=== PATIENT | female | born 1995 | race American Indian/Alaskan Native ===

== ENCOUNTER 2018-07-09 14:59 | Emergency (ER) | payer SELFPAY ==
[2018-07-09] MEDS ORDERED: ASPIRIN PO ONE (15:45)
[2018-07-09 16:56] LABS: Basophils % (Auto) 0.8 % (0.0-1.8); Eosinophils # (Auto) 0.1 K/mm3 (0.0-0.4); Eosinophils % (Auto) 1.8 % (0.0-4.3); Hematocrit 34.2 % (30.3-42.9); Hemoglobin 11.3 gm/dl (10.1-14.3); Lymphocytes # (Auto) 1.6 K/mm3 (1.2-5.4); Lymphocytes % (Auto) 28.4 % (13.4-35.0); Mean Corpuscular HGB Conc 33 % (30-34); Mean Corpuscular Hemoglobin 27 pg (28-32); Mean Corpuscular Volume 82 fl (79-97); Monocytes # (Auto) 0.8 K/mm3 (0.0-0.8); Monocytes % (Auto) 14.6 % (0.0-7.3); Platelet Count 314 K/mm3 (140-440); Red Blood Count 4.18 M/mm3 (3.65-5.03)
[2018-07-09 17:01] LABS: BUN/Creatinine Ratio 12; Blood Urea Nitrogen 11 mg/dL (7-17); Calcium 9.1 mg/dL (8.4-10.2); Hemolysis Index 1
--- NOTE | 2018-07-09 18:39 | Emergency Department Report ---
Blank Doc - Documentation Documentation: 22-year-old female with left-sided chest pain 2-3 days. Reports radiation into the left arm with tingling in fourth and fifth fingers. Patient reports history of hypertension. Reports tobacco use also. Denies family history of coronary artery disease. Denies leg pain and swelling. Vital signs are unremarkable. She appears be in no acute distress. EKG Unremarkable. Initial troponin negative. Will obtain second troponin due to character pain. Patient also reports pleuritic chest pain, but is not tachycardic or hypoxic. No calf tenderness of swelling on exam. Will check D-dimer and CXR also.
--- NOTE | 2018-07-09 19:23 | XRay Report ---
FINAL REPORT EXAM: XR CHEST ROUTINE 2V HISTORY: chest pain COMPARISON: None available. FINDINGS:: Frontal and lateral views of the chest obtained. Cardiac silhouette is within normal limits. No focal consolidation or effusion. No pneumothorax. Visualized bony thorax is grossly intact. IMPRESSION:: No acute findings.
--- NOTE | 2018-07-09 19:48 | Emergency Department Report ---
ED Chest Pain HPI - General Chief Complaint: Chest Pain Stated Complaint: CHEST PAIN Time Seen by Provider: 07/09/18 18:12 Source: patient Mode of arrival: Ambulatory Limitations: No Limitations - History of Present Illness Initial Comments: 22-year-old female with left-sided chest pain 2-3 days. Reports radiation into the left arm with tingling in fourth and fifth fingers. Patient reports history of hypertension. Reports tobacco use also. Denies family history of coronary artery disease. Denies leg pain and swelling. Vital signs are unremarkable. She appears be in no acute distress. EKG Unremarkable. Initial troponin negative. Will obtain second troponin due to character pain. Patient also reports pleuritic chest pain, but is not tachycardic or hypoxic. No calf tenderness of swelling on exam. Will check D-dimer and CXR also. MD Complaint: chest pain, other (cough ) Onset/Timin -: days(s) Onset: during rest Pain Location: left chest, right chest Pain Radiation: none Severity: moderate Severity scale (0 -10): 4 Quality: sharp Consistency: intermittent Improves With: rest Worsens With: inspiration, palpation, movement re: denies: nausea, vomting, diaphoresis, dyspnea, sense of impending doom Other Symptoms: cough Treatments Prior to Arrival: none Aspirin use within the Past 7 Days: (0) No - Related Data On Oral Contraceptives: No Previous Rx's Medication Instructions Recorded Last Taken Type ALBUTEROL Inhaler(NF) [VENTOLIN 1 puff IH Q4H PRN #1 inha 07/09/18 Unknown Rx Inhaler(NF)] Benzonatate [Tessalon Perles] 100 mg PO Q8HR PRN #30 capsule 07/09/18 Unknown Rx Ibuprofen 800 mg PO TID PRN #30 tablet 07/09/18 Unknown Rx predniSONE [Deltasone] 40 mg PO QDAY 5 Days #20 tab 07/09/18 Unknown Rx Allergies Allergy/AdvReac Type Severity Reaction Status Date / Time No Known Allergies Allergy Unverified 07/09/18 15:44 Heart Score - HEART Score History: Slightly suspicious EKG: Normal Age: < 45 Risk factors: 1-2 risk factors Troponin: < normal limit HEART Score: 1 - Critical Actions Critical Actions: 0-3 pts:0.9-1.7%risk of adverse cardiac event.Candidate for discharge ED Review of Systems ROS: Stated complaint: CHEST PAIN Other details as noted in HPI Constitutional: denies: chills, fever Eyes: denies: eye pain, eye discharge, vision change ENT: denies: ear pain, throat pain Respiratory: cough. denies: shortness of breath, wheezing Cardiovascular: denies: chest pain, palpitations Endocrine: no symptoms reported Gastrointestinal: denies: abdominal pain, nausea, diarrhea Genitourinary: denies: urgency, dysuria, discharge Musculoskeletal: as per HPI Skin: denies: rash, lesions Neurological: denies: headache, weakness, paresthesias Psychiatric: denies: anxiety, depression Hematological/Lymphatic: denies: easy bleeding, easy bruising ED Past Medical Hx - Past Medical History Additional medical history: anxiety - Surgical History Past Surgical History?: No - Social History Smoking Status: Current Every Day Smoker Substance Use Type: None - Medications Home Medications: Home Medications Medication Instructions Recorded Confirmed Last Taken Type ALBUTEROL Inhaler(NF) [VENTOLIN 1 puff IH Q4H PRN #1 inha 07/09/18 Unknown Rx Inhaler(NF)] Benzonatate [Tessalon Perles] 100 mg PO Q8HR PRN #30 capsule 07/09/18 Unknown Rx Ibuprofen 800 mg PO TID PRN #30 tablet 07/09/18 Unknown Rx predniSONE [Deltasone] 40 mg PO QDAY 5 Days #20 tab 07/09/18 Unknown Rx ED Physical Exam - General Limitations: No Limitations General appearance: alert, in no apparent distress - Head Head exam: Present: atraumatic - Eye Eye exam: Present: normal appearance - ENT ENT exam: Present: mucous membranes moist, TM's normal bilaterally, normal external ear exam - Expanded ENT Exam Expanded Throat exam: Positive: tonsillar erythema. Negative: tonsillomegaly, tonsillar exudate, R peritonsillar mass, L peritonsillar mass - Neck Neck exam: Present: normal inspection, full ROM. Absent: tenderness, lymphadenopathy, thyromegaly - Respiratory Respiratory exam: Present: normal lung sounds bilaterally, wheezes, chest wall tenderness. Absent: respiratory distress, stridor - Cardiovascular Cardiovascular Exam: Present: regular rate, normal rhythm, normal heart sounds. Absent: systolic murmur, diastolic murmur, rubs, gallop - GI/Abdominal GI/Abdominal exam: Present: soft, normal bowel sounds - Rectal Rectal exam: Present: deferred - Extremities Exam Extremities exam: Present: normal inspection - Back Exam Back exam: Present: normal inspection - Neurological Exam Neurological exam: Present: alert, oriented X3, normal gait - Psychiatric Psychiatric exam: Present: normal affect, normal mood - Skin Skin exam: Present: warm, dry, intact, normal color. Absent: rash ED Course Vital Signs 07/09/18 15:40 Temperature 99.1 F Pulse Rate 87 Respiratory 18 Rate Blood Pressure 146/80 O2 Sat by Pulse 99 Oximetry RAINE score - Raine Score Age > 65: (0) No Aspirin use within the Past 7 Days: (0) No 3 or more CAD Risk Factors: (0) No 2 or more Angina events in past 24 hrs: (0) No Known CAD with more than 50% Stenosis: (0) No Elevated Cardiac Markers: (0) No ST Deviation Greater than 0.5mm: (0) No RAINE Score: 0 ED Medical Decision Making - Lab Data Result diagrams: 07/09/18 16:42 07/09/18 16:42 Laboratory Tests 07/09/18 07/09/18 07/09/18 16:42 16:42 18:39 WBC 5.7 RBC 4.18 Hgb 11.3 Hct 34.2 MCV 82 MCH 27 L MCHC 33 RDW 16.0 H Plt Count 314 Lymph % (Auto) 28.4 [place] % (Auto) 14.6 H Eos % (Auto) 1.8 Baso % (Auto) 0.8 Lymph # 1.6 [place] # 0.8 Eos # 0.1 Baso # 0.0 Seg Neutrophils % 54.4 Seg Neutrophils # 3.1 D-Dimer Sodium 138 Potassium 4.4 Chloride 101.9 Carbon Dioxide 25 Anion Gap 16 BUN 11 Creatinine 0.9 Estimated GFR > 60 BUN/Creatinine Ratio 12 Glucose 85 Calcium 9.1 Troponin T < 0.010 < 0.010 07/09/18 18:41 WBC RBC Hgb Hct MCV MCH MCHC RDW Plt Count Lymph % (Auto) [place] % (Auto) Eos % (Auto) Baso % (Auto) Lymph # [place] # Eos # Baso # Seg Neutrophils % Seg Neutrophils # D-Dimer < 135.00 Sodium Potassium Chloride Carbon Dioxide Anion Gap BUN Creatinine Estimated GFR BUN/Creatinine Ratio Glucose Calcium Troponin T - EKG Data EKG shows normal: sinus rhythm (interp by ed provider ) Rate: normal - EKG Data Interpretation: no acute changes - Radiology Data Radiology results: report reviewed, image reviewed no inflitrates no opacities - Medical Decision Making patient has history of bronchitis 5 pack year smoker symptoms appear more URI then chest pain SSI and movement cough tubinates boggy clear postnasal drip margins were wheeze on expiration patient denies shortness of breath patient is ambulatory and NAD without shortness of breath plan albuterol inhaler when necessary shortness of breath or steroids ibuprofen when necessary pain Tessalon for cough is no fever signs are normal patient encouraged to stop smoking. EtOH and marijuana use patient will follow was also [facility] for PCP affiliation patient verbalizes understanding and agreement was signed patient DC'd home in stable condition at this time Critical care attestation.: If time is entered above; I have spent that time in minutes in the direct care of this critically ill patient, excluding procedure time. ED Disposition Clinical Impression: Bronchitis Disposition: [id number] TO HOME OR SELFCARE Is pt being admited?: No Does the pt Need Aspirin: No Condition: Good Instructions: Chronic Bronchitis (ED) Prescriptions: ALBUTEROL Inhaler(NF) [VENTOLIN Inhaler(NF)] 1 puff IH Q4H PRN #1 inha PRN Reason: sob wheezing Benzonatate [Tessalon Perles] 100 mg PO Q8HR PRN #30 capsule PRN Reason: Cough Ibuprofen 800 mg PO TID PRN #30 tablet PRN Reason: pain fever predniSONE [Deltasone] 40 mg PO QDAY 5 Days #20 tab Referrals: [facility] [Outside] - 3-5 Days Forms: Work/School Release Form(ED) Time of Disposition: 19:53
[2018-07-09 20:04] VITALS: BP 138/82
== END 2018-07-09 20:04 | disposition home or self-care (01) ==
LOC: ED 14:59
DX: J40 Bronchitis, not specified as acute or chronic (principal); F17.200 Nicotine dependence, unspecified, uncomplicated; F41.9 Anxiety disorder, unspecified
CPT/HCPCS: 36415; 71046; 80048; 84484; 85025; 85379; 93005; 93010